=== PATIENT | female | born 1950 | race Two or more races ===

== ENCOUNTER 2021-08-05 08:45 | Inpatient (IN) | payer OTHER ==
[~2021-08-05] VITALS: Ht 152.4 cm; Wt 55.8 kg
[2021-08-05] MEDS ORDERED: ORAPRED ODT10 MG PO (13:33)
[2021-08-05] MEDS ORDERED: TOPROL XL50 M1 PO (13:34)
[2021-08-05] MEDS ORDERED: PROTONIX40 MG PO (13:34)
[2021-08-05] MEDS ORDERED: VASOTEC20 MG PO (13:34)
[2021-08-26] MEDS ORDERED: RAYOS5 MG (16:33)
[2021-08-26] MEDS ORDERED: METHOTREXATE2.5 MG (16:33)
[2021-08-26] MEDS ORDERED: METOPROLOL TART50 MG (16:34)
[2021-08-29] MEDS ORDERED: PROTONIX40 MG PO (12:01)
[2021-08-29] MEDS ORDERED: ULTRACET PO (12:01)
[2021-08-29] MEDS ORDERED: INTESTINEX680 M1 PO (12:01)
== END 2021-08-29 23:15 | disposition home or self-care (01) | DRG 331 ==
LOC: SURH 08-08 07:00 → O/R 08-26 08:00 → SURH 08-26 08:45
PROVIDERS: ADMIT Surgery; ATTEND Surgery
PROC: 07BB4ZZ Excision of Mesenteric Lymphatic, Percutaneous Endoscopic Approach (ICD-10-PCS; 2021-08-26)
PROC: 0DTF4ZZ Resection of Right Large Intestine, Percutaneous Endoscopic Approach (ICD-10-PCS; principal; 2021-08-26 23:45)
DX: C18.2 Malignant neoplasm of ascending colon (principal); R59.0 Localized enlarged lymph nodes; I11.9 Hypertensive heart disease without heart failure; Z20.822 Contact with and (suspected) exposure to COVID-19; M06.8A Other specified rheumatoid arthritis, other specified site

== ENCOUNTER 2021-08-15 09:01 | Outpatient (CLI) | payer OTHER ==
[~2021-08-15 09:01] MED LIST: ORAPRED ODT10 MG PO; PROTONIX40 MG PO; TOPROL XL50 M1 PO; VASOTEC20 MG PO
== END 2021-08-15 09:33 | disposition home or self-care (01) ==
LOC: TOM 09:01
PROVIDERS: ATTEND Surgery
DX: C18.0 Malignant neoplasm of cecum (principal); D37.4 Neoplasm of uncertain behavior of colon; D12.2 Benign neoplasm of ascending colon
CPT/HCPCS: 74177; Q9965

== ENCOUNTER 2021-08-22 09:37 | Outpatient (CLI) | payer OTHER | END 2021-08-22 09:42 | disposition home or self-care (01) | LOC: LAB 09:37 | PROVIDERS: ATTEND Surgery | DX: Z20.822 Contact with and (suspected) exposure to COVID-19 (principal) ==